=== PATIENT | male | born 2000 ===

== ENCOUNTER 2021-11-18 11:30 | Outpatient (RCR) | payer OTHER, SELFPAY ==
--- NOTE | 2021-11-02 10:08 | PC.NURSE ---
Patient did not show up to the program this morning. I called patient however was unable to get a hold of him. Called his mother who is his emergency contact and she stated he is sleeping and she stated Mina told her he was starting the program on Tuesday as we will be in person. She also stated that they have been trying to get a hold of his public records officer since Tuesday as patient is on house arrest thus wanting to notify public records officer that he will be attending the program.
[2021-11-03 10:51] VITALS: BMI 31.1
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
--- NOTE | 2021-11-03 11:43 | PC.NURSE ---
Patient received a copy of his safety plan if needed.
[2021-11-03 13:10] VITALS: BP 110/72; PULSE 68; TEMP 36.3
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
--- NOTE | 2021-11-04 09:34 | PC.NURSE ---
The client called out because his mother could not leave work to give him a ride in time for the first group. He states that he is safe and will be here tomorrow, his mother is not working and will be available to give him a ride.
[2021-11-05 13:01] LABS: Amphetamine Screen Urine Not Detected (Not Detect); Barbiturates, Urine Not Detected (Not Detect); Benzodiazepines Screen Urine Not Detected (Not Detect); Cannabinoid Screen Urine Not Detected (Not Detect); Cocaine Screen Urine Not Detected (Not Detect); Fentanyl, urine Not Detected (Not Detect); Opiate Screen Urine Not Detected (Not Detect); Phencyclidine Screen Urine Not Detected (Not Detect)
--- NOTE | 2021-11-05 14:10 | PC.NURSE ---
case opened in treatment team
--- NOTE | 2021-11-10 10:09 | HO.PHPPROGNO ---
Subjective Subjective Date of Service: 11/10/21 Reason For Visit: ADHD,depression,anxiety Medical Problems Affecting Mental Status: No Interim History: Reports feeling ?tired ?this morning. States her got to take morning medication BuSpar, will take it when he gets home. Feels more depressed today, attributes this to arguing with his girlfriend. Denies SI/HI, no safety concerns. Has upcoming court date tomorrow. Medication Compliance: Intermittent Side effects from medications: No Attending Groups: Yes Review of Systems Acute medical concerns: No Medical Review of Systems: unchanged Mental Status Exam Mental Status Exam Narrative: NAD. Patient Appearance: Appropriate Patient Orientation: Person, Place, Time and Situation Level of Consciousness: Appropriate Patient Behavior: Appropriate and Cooperative Mood Description: Depressed Affect Description: Flat Ability to Follow Directions: Good Speech Pattern: Clear, Appropriate and Coherent Memory Description: Intact Hallucinations: None Delusions: Not Present Thought Process: Intact Thought Content: positive for Intact Depressive Symptoms: Increased Anxiety, Feelings of Guilt and Difficulty Concentrating Judgement: Fair Diagnostics Vital Signs (24Hr): BMI result Body Mass Index 31.1 Assessment & Plan Assessment & Plan (1) Major depressive disorder, recurrent, moderate: Status: Acute Code(s): F33.1 - Major depressive disorder, recurrent, moderate Assessment and Plan: Reports feeling ?tired ?this morning. States her got to take morning medication BuSpar, will take it when he gets home. Feels more depressed today, attributes this to arguing with his girlfriend. Denies SI/HI, no safety concerns. Has upcoming court date tomorrow. Reports current medications are appropriate, satisfied with current medication regimen. Meds are prescribed by hand in [facility], provider checks in with him on a regular basis. (2) Generalized anxiety disorder: Status: Acute Code(s): F41.1 - Generalized anxiety disorder Assessment and Plan: Repeat reports that he is not anxious about upcoming court date tomorrow. States that he is more concerned currently with arguing with his girlfriend, as he hopes to resolve this. Plan 1. Continue with current [facility] plan of care. 2. Continue with current medication regimen. 3. Follow-up as per protocol. Patient educated on: diagnosis, medication risk/benefits and therapeutic strategies Informed Consent: understands Reason for contiued partial hosp. stay Substantial Risk for: inability to function and med/psych decompensation Certification I certify that partial hospital treatment is medically necessary due to the symptoms and problems resulting from the patient's mental illness and the failure to treat the patient at the partial hospital level of care would likely result in the patient requiring inpatient psychiatric care which could not be prevented at a less intensive level of care. I spent minutes with the patient and/or on the patient floor today, greater than?50% of which was spent counseling/coordinating care. Discharge Plan Discharge Attending provider: Deion Nolan Medications: No Action olanzapine 5 mg Tablet 5 mg PO BEDTIME hydroxyzine pamoate 50 mg Capsule 50 mg PO BEDTIME trazodone 100 mg Tablet 200 mg PO BEDTIME mirtazapine 15 mg Tablet 15 mg PO BEDTIME buspirone [BuSpar] 15 mg Tablet 15 mg PO TID
--- NOTE | 2021-11-18 13:39 | PC.NURSE ---
Patient scheduled for routine discharge today. Patient feeling anxious about discharge. Denied SI or thoughts to harm himself. Denied HI. Appears ready for discharge. Medications reviewed with patient. Patient reports he takes his medications as prescribed. Patient stated in addition to his medication list he has also been taking Prozac 30 mg daily. Patient given written education about depression and Mariiuana use and addiction. Patient has the crisis number if needed.
--- NOTE | 2021-11-18 14:03 | PC.NURSE ---
I called patient and asked him to review his medication list with his prescriber to confirm what he is taking for medications. Patient reports today he is taking Prozac 30 mg and has been taking this medication for a long time in addition to his other medications. Patient stated he plans on calling his prescriber today to review his medications. Kianna Galeana NP is aware.
--- NOTE | 2021-11-18 14:51 | HO.PHPPROGNO ---
Subjective Subjective Date of Service: 11/18/21 Reason For Visit: ADHD,depression,anxiety Medical Problems Affecting Mental Status: No Interim History: Describes mood as good . No SI/HI, no safety concerns. No AH/VH. Remains abstinent from substance. Feels stable for discharge from [facility]. Wants to stop all medications except for fluoxetine (med not listed on current med list). Medication Compliance: Yes Side effects from medications: No Attending Groups: Yes Review of Systems Acute medical concerns: No Medical Review of Systems: unchanged Review of Systems Review of Systems Yes all other systems are reviewed and are negative Constitutional: Reports no additional constitutional complaints Mental Status Exam Mental Status Exam Narrative: NAD. Patient Appearance: Well Grooomed and Appropriate Patient Orientation: Person, Place, Time and Situation Level of Consciousness: Appropriate Patient Behavior: Appropriate and Cooperative Mood Description: Calm and Appropriate Affect Description: Appropriate Patient Cognition Impaired: No Ability to Follow Directions: Good Speech Pattern: Clear, Appropriate and Coherent Memory Description: Intact Hallucinations: None Delusions: Not Present Thought Process: Intact Thought Content: positive for Intact Judgement: Fair Judgement and Insight: Judgment and insight fair but adequate. Diagnostics Vital Signs (24Hr): BMI result Body Mass Index 31.1 Assessment & Plan Assessment & Plan (1) Major depressive disorder, recurrent, moderate: Status: Acute Code(s): F33.1 - Major depressive disorder, recurrent, moderate Assessment and Plan: Describes mood as good . No SI/HI, no safety concerns. No AH/VH. Remains abstinent from substance. States that he has regular random drug screens as he is on house arrest, so this is helping him maintain abstinence at this time. Feels stable for discharge from [facility]. Wants to stop all medications except for fluoxetine (med not listed on current med list). We discussed medication history, which shows fluoxetine last filled in February 2021. He states that he recently was given it again as a prescription, and that he picked it up yesterday. We discussed all current medications in detail. He is currently working with outpatient providers through [facility] Department, who prescribe all of his meds currently. He was advised to discuss this with them directly regarding wish for any medication changes. He states that he would discuss any desired medication changes with them directly going forward. (2) Generalized anxiety disorder: Status: Acute Code(s): F41.1 - Generalized anxiety disorder (3) Post-traumatic stress disorder, chronic: Status: Acute Code(s): F43.12 - Post-traumatic stress disorder, chronic (4) Cannabis dependence, uncomplicated: Status: Acute Code(s): F12.20 - Cannabis dependence, uncomplicated Plan 1. Patient appears stable for discharge from [facility] at this time. 2. Patient to follow-up with outpatient providers going forward. Patient educated on: diagnosis, medication risk/benefits, substance abuse and therapeutic strategies Informed Consent: understands Reason for contiued partial hosp. stay Substantial Risk for: stable for discharge Certification I certify that partial hospital treatment is medically necessary due to the symptoms and problems resulting from the patient's mental illness and the failure to treat the patient at the partial hospital level of care would likely result in the patient requiring inpatient psychiatric care which could not be prevented at a less intensive level of care. I spent minutes with the patient and/or on the patient floor today, greater than?50% of which was spent counseling/coordinating care. Discharge Plan Discharge Attending provider: Deion Nolan Additional Instructions: NOE LUGO 11/19/21, Sonia Messer 12/09/21, 01/05/22 follow up Medications: No Action olanzapine 5 mg Tablet 5 mg PO BEDTIME hydroxyzine pamoate 50 mg Capsule 50 mg PO BEDTIME trazodone 100 mg Tablet 200 mg PO BEDTIME mirtazapine 15 mg Tablet 15 mg PO BEDTIME buspirone [BuSpar] 15 mg Tablet 15 mg PO TID Stand Alone Forms: Patient Portal Discharge page Patient Education: Depression (DC)
== END 2021-11-18 23:59 | disposition home or self-care (01) ==
LOC: HO.PHPA 11:30
PROVIDERS: Visit Provider Psychiatry & Neurology Psychiatry
DX: F33.1 Major depressive disorder, recurrent, moderate (principal); F41.1 Generalized anxiety disorder; F43.12 Post-traumatic stress disorder, chronic; F12.20 Cannabis dependence, uncomplicated; Z79.899 Other long term (current) drug therapy
CPT/HCPCS: 80307; 90791; 90853